=== PATIENT | male | born 1930 | race Caucasian/White ===

== ENCOUNTER 2019-02-10 14:01 | Emergency (ER) | payer MEDICARE ==
[~2019-02-10] VITALS: Ht 175.3 cm; Wt 79.5 kg
[~2019-02-10 14:01] MED LIST: ASCRIPTIN325 MG PO; ASPIRIN 32325 MG/TAB PO; ASPIRIN E.C. 8181 MG PO; AVELOX 400MG T400 MG PO; COUMADIN5 M1 PO; DILTIAZEM CD240 MG PO; DILTIAZEM ER240 MG PO; MULTAQ400 MG PO; NORCO 325 MG-51 TAB PO; NORVASC2.5 MG PO; VYTORIN; VYTORIN 10 MG-81 TAB PO
[2019-02-10 14:08] VITALS: TEMP 99.8
[2019-02-10] MEDS ORDERED: ZOCOR 80MG80 MG PO (14:35)
[2019-02-10] MEDS ORDERED: NORVASC 10MG10 MG PO (14:36)
[2019-02-10] MEDS ORDERED: LIPITOR 40MG TA40 MG PO (14:36)
[2019-02-10] MEDS ORDERED: ZETIA 10MG TAB10 MG PO (15:04)
[2019-02-10] MEDS ORDERED: COZAAR100 MG PO (15:04)
[2019-02-10 15:07] LABS: BASO % 0.4 % (0.0-2.0); EOS # 0.1 (0.0-0.7); GRAN # 6.8 (1.4-6.5); GRAN % 73.7 % (42.2-75.2); HEMATOCRIT 42.8 % (42.0-52.0); HEMOGLOBIN 13.8 g/dl (13.5-18.0); LYMPH % 11.2 % (20.0-51.0); MEAN CELL VOLUME 92 fl (80.0-100.0); MEAN CORPUSCULAR HEMOGLOBIN 30 pg (27.0-31.0); MEAN CORPUSCULAR HGB CONC 32 g/dl (33.0-37.0); MEAN PLATELET VOLUME 10.9 fl (7.4-10.4); MONO # 1.2 (0.1-0.6); MONO % 13.4 % (1.7-9.3); PLATELET COUNT 197 K/mm3 (130-400); RED BLOOD COUNT 4.67 M/mm3 (4.20-5.60); REDCELL DISTRIBUTION WIDTH-CV 14.6 % (11.5-14.5)
[2019-02-10 15:15] LABS: ALBUMIN 3.8 gm/dL (3.5-5.0); BILIRUBIN,TOTAL 0.5 mg/dL (0.0-1.0); CALCIUM 10.6 mg/dL (8.4-10.2); CREATININE, serum 1.08 (0.66-1.25); URIC ACID 5.7 mg/dL (3.5-8.5)
[2019-02-10 15:27] LABS: ERYTHROCYTE SEDIMENTATION RATE 18 mm/hr (0-30)
[2019-02-10] MEDS ORDERED: NORCO 325 MG-51 TAB PO (16:23)
[2019-02-10 17:45] VITALS: BP 103/79; PULSE 88
== END 2019-02-10 17:38 | disposition home or self-care (01) ==
LOC: COL.ER 14:01
PROVIDERS: Emergency Medicine
DX: M17.11 Unilateral primary osteoarthritis, right knee (principal); M25.461 Effusion, right knee; E78.5 Hyperlipidemia, unspecified; I10 Essential (primary) hypertension; F17.210 Nicotine dependence, cigarettes, uncomplicated
CPT/HCPCS: J2270; J2405; J7030

== ENCOUNTER 2019-10-27 08:54 | Day surgery (SDC) | payer MEDICARE ==
[~2019-10-27] VITALS: Ht 167.6 cm; Wt 85.4 kg
[~2019-10-27 08:54] MED LIST changes: +COZAAR100 MG PO; +LIPITOR 40MG TA40 MG PO; +NORVASC 10MG10 MG PO; +ZETIA 10MG TAB10 MG PO; +ZOCOR 80MG80 MG PO
[2019-10-27 09:57] VITALS: BP 133/89; PULSE 81; TEMP 98.1
[2019-10-27] MEDS ORDERED: TENORMIN 2525 MG/TAB PO (10:16)
[2019-10-27] MEDS ORDERED: LIPITOR 40MG TA40 MG PO (10:16)
[2019-10-27] MEDS ORDERED: AVAPRO300 M1 PO (10:17)
[2019-10-27] MEDS ORDERED: COUMADIN 2MG2 MG/TAB PO (10:19)
[2019-10-27] MEDS ORDERED: COUMADIN 5MG5 MG/TAB PO (10:20)
[2019-10-27] MEDS ORDERED: 00186-0370-20 IH (10:21)
[2019-10-27] MEDS ORDERED: KLOR-CON 1010 MEQ PO (10:21)
[2019-10-27] MEDS ORDERED: VISINE A.C. 0.015 ML OU (10:25)
[2019-10-27] MEDS ORDERED: PURE & GENTLE 115 ML OU (10:25)
[2019-10-27 12:05] VITALS: BP 140/80; PULSE 60; TEMP 98.2
--- NOTE | 2019-10-27 12:05 | NUR ---
Pt to [facility] via cart from PACU. Pt drowsy, but easily arousable. Pt denies pain or nausea. Pt confused on location, and reorientation attempted, but pt closes eyes to sleep. Juice provided. Daughter at bedside. Will continue to monitor. Call light within reach.
[2019-10-27 12:20] VITALS: BP 156/85; PULSE 72
--- NOTE | 2019-10-27 12:20 | NUR ---
Pt resting. Awakens easily. Denies pain or nausea. Call light within reach.
[2019-10-27 12:35] VITALS: BP 170/91; PULSE 72
--- NOTE | 2019-10-27 12:35 | NUR ---
Pt restless in bed. Pt c/o needing to void. As nurse was assiting pt up to restroom, pt urinates on floor as if at the toilet. Gown and socks changed, floor disinfected. Pt back to bed. Will continue to monitor. Call light within reach.
[2019-10-27 12:50] VITALS: BP 172/89; PULSE 78
--- NOTE | 2019-10-27 12:50 | NUR ---
Pt attempting to get out of bed by self. Pt needing to use restroom, and urinates on floor again. Pt cleaned up, and attends placed on pt. Floor disinfected. Ice cream given to pt. Will continue to monitor. Call light within reach. Side rails up x2.
[2019-10-27 13:20] VITALS: BP 161/67; PULSE 77
--- NOTE | 2019-10-27 13:20 | NUR ---
Chance UMANZOR notifed of high blood pressure. He advises to have [facility] give pt his morning medications when he gets back. No further orders. Report given to Tricia PEDRAZA at [facility]. Questions invited and answered.
--- NOTE | 2019-10-27 14:00 | NUR ---
Discharge instructions reviewed with daughter by Giuseppe PEDRAZA. IV discontinued with all parts intact. Pt assisted with dressing by nursing staff.
--- NOTE | 2019-10-27 14:15 | NUR ---
Pt escorted to shelter transportation vehicle via wheel chair. Pt accompanied back to shelter by [facility] staff.
== END 2019-10-27 14:15 | disposition home or self-care (01) ==
LOC: SDCO 08:54
DX: C65.1 Malignant neoplasm of right renal pelvis (principal); R31.9 Hematuria, unspecified; Z85.51 Personal history of malignant neoplasm of bladder; Z85.818 Personal history of malignant neoplasm of other sites of lip, oral cavity, and pharynx; E78.5 Hyperlipidemia, unspecified; I10 Essential (primary) hypertension; E87.6 Hypokalemia; I71.4 Abdominal aortic aneurysm, without rupture; I25.2 Old myocardial infarction; Z85.46 Personal history of malignant neoplasm of prostate; Z92.3 Personal history of irradiation; F17.210 Nicotine dependence, cigarettes, uncomplicated; Z88.8 Allergy status to other drugs, medicaments and biological substances; J44.9 Chronic obstructive pulmonary disease, unspecified; I48.91 Unspecified atrial fibrillation
CPT/HCPCS: C1769; J0690; J1100; J2405; J2704; J3010; J7120; Q9967